=== PATIENT | female | born 1990 | race Caucasian/White ===

== ENCOUNTER → 2020-04-05 | Outpatient (CLI) | payer BC, SELFPAY ==
[2020-04-05 11:35] VITALS: BMI 32.0
[2020-04-05 18:20] LABS: Amphetamine Urine VISTA NEGATIVE (<1000 ng/mL); Barbiturate Urine VISTA NEGATIVE (< 200 ng/mL); Benzodiazepine Urine VISTA NEGATIVE (< 200 ng/mL); Cocaine Urine VISTA NEGATIVE (< 300 ng/mL); Ecstacy Urine VISTA NEGATIVE (< 500 ng/mL); Methadone Urine VISTA NEGATIVE (< 300 ng/mL); PCP Urine VISTA NEGATIVE (< 25 ng/mL); THC Urine VISTA NEGATIVE (< 50 ng/mL); Vista UDS pH Range 6
[2020-04-09 20:07] LABS: Chlamydia By Nucleic Acid AMP Negative (Negative)
[2020-04-09 21:17] LABS: Gonococcus By Nucleic Acid AMP Negative (Negative)
[2020-04-12 13:07] LABS: HPV APTIMA, High Risk Negative (Negative)
== END | disposition home or self-care (01) ==
LOC: LABSPEC 16:43
PROVIDERS: PCP Nurse Practitioner Family; Referring Provider Obstetrics & Gynecology; Visit Provider Obstetrics & Gynecology
DX: Z34.90 Encounter for supervision of normal pregnancy, unspecified, unspecified trimester (principal); Z12.4 Encounter for screening for malignant neoplasm of cervix
CPT/HCPCS: 80307; 87086; 87088; 87491; 87591; 87624; 88175; G0145

== ENCOUNTER → 2020-05-04 14:08 | Outpatient (CLI) | payer BC, SELFPAY ==
[2020-04-05 11:35] VITALS: BMI 32.0
[2020-05-04 15:43] LABS: Absolute Lymphocyte Count 1.37 X10^3/uL (0.83-4.51); Absolute Neutrophil Count 6.8 X10^3/uL (2.0-7.7); Basophil# 0.03 X10^3/uL; Basophil% 0.3 % (0-1); Eosinophil# 0.21 X10^3/uL; Eosinophils% 2.3 % (0-5); Hematocrit 37.5 % (37-47); Hemoglobin 12.5 g/dL (12.0-15.0); Lymphocyte # 1.37 X10^3/ul (4.0); Lymphocyte % 15.3 % (19-41); Mean Corp Hgb Conc 33.3 g/dL (32-36); Mean Corpuscular Hgb 31.5 pg (27.0-32.0); Mean Corpuscular Volume 94.5 fL (81-99); Mean Platelet Vol. 10.2 fl (6.2-12.0); Monocyte# 0.51 X10^3/uL; Monocyte% 5.7 % (0-10); NRBC Flagged by Analyzer 0 % (0-5); Neutrophil # 6.83 X10^3/uL (2.7-7.7); Neutrophil % 76.1 % (47-70); Platelet Count 201 K/mm3 (150-450); RBC Distribution Width CV 12.7 % (11.6-14.6); RBC Distribution Width SD 44.2 fl (35.1-43.9); Red Blood Count 3.97 M/mm3 (4.2-5.4)
[2020-05-04 15:53] LABS: Glucose Challenge Gest 1H 50g 69 mg/dL (70-140)
[2020-05-05 11:00] LABS: HIV - WCH Non-Reactive (Nonreactive); Hepatitis B Surface Antigen Non-Reactive (Nonreactive); Hepatitis C Antibody Non-Reactive (Nonreactive); Rubella IgG Reactive (Nonreactive)
== END ==
PROVIDERS: PCP Nurse Practitioner Family; Referring Provider Obstetrics & Gynecology; Visit Provider Obstetrics & Gynecology
DX: Z34.90 Encounter for supervision of normal pregnancy, unspecified, unspecified trimester (principal)
CPT/HCPCS: 36415; 82950; 85025; 86703; 86762; 86803; 86850; 86900; 86901; 87340

== ENCOUNTER → 2020-08-20 15:22 | Outpatient (CLI) | payer BC, SELFPAY ==
[2020-07-27 15:50] VITALS: BMI 32.1
[2020-08-20 15:47] LABS: Absolute Lymphocyte Count 1.18 X10^3/uL (0.83-4.51); Absolute Neutrophil Count 6.3 X10^3/uL (2.0-7.7); Basophil# 0.02 X10^3/uL; Basophil% 0.2 % (0-1); Eosinophil# 0.18 X10^3/uL; Eosinophils% 2.2 % (0-5); Hematocrit 31.5 % (37-47); Hemoglobin 10.5 g/dL (12.0-15.0); Lymphocyte # 1.18 X10^3/ul (0.83-4.51); Lymphocyte % 14.4 % (19-41); Mean Corp Hgb Conc 33.3 g/dL (32-36); Mean Corpuscular Hgb 31.3 pg (27.0-32.0); Mean Corpuscular Volume 93.8 fL (81-99); Mean Platelet Vol. 9.9 fl (6.2-12.0); Monocyte# 0.52 X10^3/uL; Monocyte% 6.3 % (0-10); NRBC Flagged by Analyzer 0 % (0-5); Neutrophil # 6.25 X10^3/uL (2.7-7.7); Neutrophil % 76.4 % (47-70); Platelet Count 206 K/mm3 (150-450); RBC Distribution Width CV 13.6 % (11.6-14.6); RBC Distribution Width SD 46.4 fl (35.1-43.9); Red Blood Count 3.36 M/mm3 (4.2-5.4); White Blood Count 8.2 K/mm3 (4.4-11.0)
[2020-08-20 16:35] LABS: Glucose Challenge Gest 1H 50g 94 mg/dL (70-140)
== END ==
PROVIDERS: Obstetrics & Gynecology; PCP Nurse Practitioner Family; Referring Provider Obstetrics & Gynecology; Visit Provider Obstetrics & Gynecology
DX: O09.291 Supervision of pregnancy with other poor reproductive or obstetric history, first trimester (principal); Z3A.12 12 weeks gestation of pregnancy; Z86.32 Personal history of gestational diabetes
CPT/HCPCS: 36415; 82950; 85025

== ENCOUNTER → 2020-09-04 | Outpatient (CLI) | payer BC, SELFPAY ==
[2020-09-04 15:41] VITALS: BMI 32.1
== END | disposition home or self-care (01) ==
LOC: LABSPEC 16:57
PROVIDERS: PCP Nurse Practitioner Family; Referring Provider Obstetrics & Gynecology; Visit Provider Obstetrics & Gynecology
DX: N89.8 Other specified noninflammatory disorders of vagina (principal)
CPT/HCPCS: 87070; 87205

== ENCOUNTER → 2020-10-16 | Outpatient (CLI) | payer BC, SELFPAY | END | disposition home or self-care (01) | LOC: LABSPEC 17:24 | PROVIDERS: PCP Nurse Practitioner Family; Referring Provider Obstetrics & Gynecology; Visit Provider Obstetrics & Gynecology | DX: Z34.93 Encounter for supervision of normal pregnancy, unspecified, third trimester (principal); Z3A.36 36 weeks gestation of pregnancy | CPT/HCPCS: 87081 ==

== ENCOUNTER 2020-11-12 05:00 | Outpatient (CLI) | payer BC, SELFPAY ==
[2020-11-12 05:06] VITALS: BMI 37.5
[2020-11-12] MEDS: Lactated Ringers 1,000 ML 999 ML IV (05:25)
[2020-11-12 05:30] VITALS: BP 120/72; PULSE 95; RESP 18; TEMP 36.1; O2SAT 98
[2020-11-12] MEDS: Acetaminophen 500 MG Tablet 1000 MG PO (05:44)
[2020-11-12 05:56] LABS: Absolute Lymphocyte Count 1.47 X10^3/uL (0.83-4.51); Absolute Neutrophil Count 6.3 X10^3/uL (2.0-7.7); Basophil# 0.02 X10^3/uL; Basophil% 0.2 % (0-1); Eosinophil# 0.17 X10^3/uL; Hematocrit 35.1 % (37-47); Hemoglobin 11.7 g/dL (12.0-15.0); Lymphocyte # 1.47 X10^3/ul (0.83-4.51); Lymphocyte % 17.3 % (19-41); Mean Corp Hgb Conc 33.3 g/dL (32-36); Mean Corpuscular Hgb 30.8 pg (27.0-32.0); Mean Corpuscular Volume 92.4 fL (81-99); Mean Platelet Vol. 9.8 fl (6.2-12.0); Monocyte# 0.49 X10^3/uL; Monocyte% 5.8 % (0-10); NRBC Flagged by Analyzer 0 % (0-5); Neutrophil # 6.27 X10^3/uL (2.7-7.7); Platelet Count 194 K/mm3 (150-450); RBC Distribution Width CV 13.8 % (11.6-14.6); RBC Distribution Width SD 46.8 fl (35.1-43.9); White Blood Count 8.5 K/mm3 (4.4-11.0)
[2020-11-12] MEDS: Lactated Ringers 1,000 ML 150 ML IV (06:33)
[2020-11-12] MEDS: Sodium Citrate/Citric Acid 30 ML UDC PO (07:01)
[2020-11-12 07:49] VITALS: TEMP 36.9
[2020-11-12] MEDS: 0.9% Saline Lock 10 ML Syringe IV (08:02)
--- NOTE | 2020-11-12 08:21 | NURSING ---
Pt had been admitted for schedued c/section. Upon entry to OR pt informed Dr. Akers she is feeling contractions. Vag exam in OR per Dr. Martinez 1-2/. reports this is a change from vag exam in office on Thursday. Pt requesting option of . brought into OR and plan of care discussed. Pt, and Dr. Martinez agree with plan to observe pt on EFM for minimum of one hour. Will schedule US for CHUCK to be done, vag exam per RN to follow.
--- NOTE | 2020-11-12 08:27 | US_ITS ---
STUDY: SECOND AND THIRD TRIMESTER OBSTETRICAL ULTRASOUND - LIMITED REASON FOR EXAM: Female, 29 years old Fluid volume index -- CHUCK prior to discharge. Please call WP when ready LMP: 02/07/2020. PRIOR ULTRASOUND: None. TECHNIQUE: Transabdominal TECHNICAL QUALITY: Adequate. FINDINGS: There is a single intrauterine fetus. The fetus is in a cephalic presentation. There is demonstrated cardiac activity with a heart rate of 150 bpm. There is a normal amniotic fluid volume. The largest amniotic fluid pocket measures 3.3 cm. The amniotic fluid index (CHUCK) is 6.1 cm. The placenta is anterior in location and is not low lying. There are Grade 3 placental changes. Age by LMP: 39 weeks, 6 days. OWEN by LMP: 11/13/2020. US/OB Limited (No Biometrics) IMPRESSION: Normal amniotic fluid. Electronically Signed: Jim Krishna MD at 10:18 EDT , Service support ,
--- NOTE | 2020-11-12 10:27 | OB.TRI.PN_ITS ---
Progress Notes Date of Service: 11/12/20 Progress Note: Patient presents for triage evaluation secondary to TOLAC. patient was originally going to have a RLTCS but is starting cotnractions and made cervical change to 1 cm so wants to try for FHT: 140 Moderate variability reactive no decelerations category I tracing [employer]: irregular Contractions Assessment and plan: false labor, no cervicla change while present, chuck 6 cm, Reactive NST, reassuring maternal and status patient discharged to home to follow-up . See problem list details for additional plan information. Laboratory Studies: Laboratory Tests 11/12/20 11/12/20 Range/Units 05:25 05:25 WBC 8.5 (4.4-11.0) K/mm3 RBC 3.80 L (4.2-5.4) M/mm3 Hgb 11.7 L (12.0-15.0) g/dL Hct 35.1 L (37-47) % MCV 92.4 (81-99) fL MCH 30.8 (27.0-32.0) pg MCHC 33.3 (32-36) g/dL RDW Std Deviation 46.8 H (35.1-43.9) fl RDW Coeff of Elise 13.8 (11.6-14.6) % Plt Count 194 (150-450) K/mm3 MPV 9.8 (6.2-12.0) fl Immature Gran % (Auto) 0.700 (0.0-0.9) % Neut % (Auto) 74.0 H (47-70) % Lymph % (Auto) 17.3 L (19-41) % Norton % (Auto) 5.8 (0-10) % Eos % (Auto) 2.0 (0-5) % Baso % (Auto) 0.2 (0-1) % Absolute Neuts (auto) 6.3 (2.0-7.7) X10^3/uL Absolute Lymphs (auto) 1.47 (0.83-4.51) X10^3/uL Nucleated RBC % 0 (0-5) % Blood Type O POSITIVE Antibody Screen NEGATIVE Charges/Coding Procedures Urinary/Genital 52xxx-59xxx: 88832-87 non-stress test Interp Assessment & Plan (1) False labor: (2) CHUCK (amniotic fluid index) borderline low: COMMENT: kick counts reviewed, repeat chuck and fu in office
== END 2020-11-12 10:25 | disposition home or self-care (01) ==
LOC: WP 10:15 → WPOUT 15:02
PROVIDERS: Obstetrics & Gynecology; PCP Nurse Practitioner Family; Referring Provider Obstetrics & Gynecology; Visit Provider Obstetrics & Gynecology
PROC: (CPT 59514; principal; 2020-11-12 07:15)
DX: O47.9 False labor, unspecified (principal); O34.219 Maternal care for unspecified type scar from previous cesarean delivery; Z3A.00 Weeks of gestation of pregnancy not specified
CPT/HCPCS: 96360; 36415; 59025; 59050; 76815; 85025; 86850; 86900; 86901; 99218; J7120; A4216; G0378

== ENCOUNTER 2020-11-14 01:40 | Outpatient (CLI) | payer BC, SELFPAY ==
[2020-11-14] VITALS (12 sets, daily range): BP systolic 137; BP diastolic 78; PULSE 116–133; TEMP 36.6; O2SAT 86–99; BMI 37.4
--- NOTE | 2020-11-14 05:40 | OB.TRI.PN ---
Progress Notes Date of Service: 11/14/20 Progress Note: Patient presents for triage evaluation secondary to contractions and back pain. Cervix 2cm on arrival. Unchanged on 2h recheck. Discharged in stable condition. FHT: Moderate variability reactive no decelerations category I tracing [place]: q3-8 min Contractions Assessment and plan: Reactive NST, reassuring maternal and status patient discharged to home to follow-up at next scheduled visit. See problem list details for additional plan information. Charges/Coding Procedures Urinary/Genital 52xxx-59xxx: 60342-93 non-stress test Interp
== END 2020-11-14 05:25 | disposition home or self-care (01) ==
LOC: WPOUT 01:45 → WP 01:45
PROVIDERS: PCP Nurse Practitioner Family; Visit Provider Obstetrics & Gynecology
DX: O26.899 Other specified pregnancy related conditions, unspecified trimester (principal); M54.9 Dorsalgia, unspecified; Z3A.00 Weeks of gestation of pregnancy not specified
CPT/HCPCS: 59025; 59050; 99218; G0378

== ENCOUNTER → 2020-11-15 | Outpatient (CLI) | payer BC, SELFPAY ==
[2020-11-15 14:47] LABS: ROM Internal Control Test YES-OK TO RESULT pt. (Internal QC); ROM Patient Test Negative (Negative)
== END | disposition home or self-care (01) ==
LOC: LABSPEC 11-21 09:11
PROVIDERS: Obstetrics & Gynecology; PCP Nurse Practitioner Family; Visit Provider Obstetrics & Gynecology
DX: O26.899 Other specified pregnancy related conditions, unspecified trimester (principal); N89.8 Other specified noninflammatory disorders of vagina
CPT/HCPCS: 84112

== ENCOUNTER 2020-11-19 05:00 | Inpatient (IN) | payer BC, SELFPAY ==
--- NOTE | 2020-11-18 12:11 | PCM.HP.BLA ---
History and Physical Date of Admission: 11/19/20 Vital Signs 11/08/20 16:09 Height 5 ft 2 in Weight: 206 lb 4 oz BMI 37.7 BP 120/80 Intake Visit Reasons: 39 WK OB Airveyor Operator Required: No Is patient in pain?: No Allergies No Known Allergies Allergy (Verified 11/08/20 16:10) Medications cholecalciferol (vitamin D3) 25 mcg (1,000 unit) capsule 25 mcg PO DAILY 04/04/20 [History Confirmed 11/08/20] multivitamin no.47-iron fum 27 mg-folate no.1 1 mg-dha 300 mg capsule cap PO 04/04/20 [History Confirmed 11/08/20] Last Menstral Period: 02/07/20 Zika: Zika virus screening: Negative : No PFSH PFSH Medical History Anxiety Bartonella infection Surgical History H/O section H/O wisdom tooth extraction Family History Father Hypertension Social History adopted: No household members: family housing: house number of children: 2 Smoking Status: Former smoker second hand exposure: No alcohol intake: current alcohol intake frequency: holidays/special occasions only details: not while substance use type: does not use seatbelt use: always do you feel safe at home: Yes additional social history: - Harjeet Pregancy History 3 Elective abortions Hx Para 2 Spontaneous abortions Hx # Term Pregnancies Ectopic pregnancies Hx # Pregnancies Multiple births # of living children 2 Past Pregnancies Del. Date Name GA/Weeks Outcome Route Bth Weight Infant Gen Labor Lgth Anesthesia Del Locatn Provider FOB 12/03/16 Becca 40 live - full term 7lbs 11oz Female 1 hour epidural [facility] Dr. Winnie Cosby 04/16/19 Adelaida 39 live - full term 7lbs Female 0 spinal [facility] Dr. Winnie Cosby Delivery Date: 12/03/16 GDM; STAT C/S due to heart rate decel Miriam Tirado Delivery Date: 04/16/19 RLTCS - spinal did not work Sofi Worley HPI 39 WK OB Details: LOUIE GERMAIN is a 29 year old who presents for routine OB visit. OB Visit OWEN Calculator Estimated Delivery Date Method Current WG Current Estimate 11/13/20 LMP (Certain) 39w 2d Other Estimates 11/14/20 Ultrasound #1 39w 1d Expected Delivery Route/Plan plan tolac plan RLTCS with SM at 40 if no labor patient counseled regarding risks/benefits of trial of labor versus repeat . ACOG/uptodate education given to patient. 65 % likelihood of success per calculator TOLAC consent form signed: yes 09/04 Labor Preferences- labor support person: [] labor intervention preferences: [] pain management options preferred: [] cut cord/dad catch: [] : [] PP control planned: [] discussed possible routes of delivery and associated risks: [] special requests: [] Specific Issue/Plans flu vaccine: tdap vaccine: given rhogam: na LARC form signed: declined movement and labor precautions reviewed. Problem list reviewed and updated with the most current plan of care details and appropriate orders placed. Relevant counseling for the gestational age provided. Continue routine care and follow up unless otherwise noted in visit notes/problem list details Initial Weight: 175 lb Date EGA Weight BP Urine Prot Glucose FHR FuHt Pres Dilation Effaced St Visit Note 04/05/20 8w 2d 175 lb (+0 oz) 102/80 155 GP - CRL consistent with LMP. GP - CRL 15mm consistent with LMP. 05/04/20 12w 3d 177 lb 4 oz (+2 lb 4 oz) 116/80 Negative Negative 170 GP - no bleeding. One episode of cramping. Did sneak peak - having girl #3! Anatomy scan ordered. GP - no bleeding. One episode of cramping. Did sneak peak - having girl #3! Anatomy scan ordered. Had NOB labs and GCT done today. 06/01/20 16w 3d 176 lb (+16 oz) 120/72 Negative Negative 150 16 SM- no vb lof noregular ctx decliens afp. discussed TOLAC, good candidate. 06/20/20 19w 1d 180 lb 4 oz (+5 lb 4 oz) 118/66 Negative Negative 164 MH-No VB, LOF. ?FM. Will have miriam procedure at [facility] on 07/11 for basal cell Ca on face. 07/27/20 24w 3d 186 lb (+11 lb) 102/74 Negative Negative 145 24 GP - no LOF, VB, DFM, ctx. Had miriam procedure this week 08/20/20 27w 6d 194 lb (+19 lb) 132/72 Negative Negative 140 28 SM- no vb lof good fm no regular ctx declined tdap 09/04/20 30w 0d 192 lb (+17 lb) 104/70 Negative Negative 140 30 Sm- no vb lof good fm no regular ctx co increased discharge and odor. sign tolac consent, larc 09/19/20 32w 1d 195 lb 8 oz (+20 lb 8 oz) 110/60 Negative Negative 145 32 GP - no LOF, VB, DFM, ctx. Doing well without complaints. 10/05/20 34w 3d 198 lb (+23 lb) 118/62 Negative Negative 135 34 Cephalic GP - no LOF, VB, DFM, ctx. TOLAC consent signed. 10/16/20 36w 0d 203 lb (+28 lb) 104/72 Negative Negative 135 36 Cephalic 0 Sm- no vb lof good fm no regular ctx 10/22/20 36w 6d 178 lb (+3 lb) 122/84 Negative Negative 135 37 Unstable 0.5 SM- no vb lof good fm no regular ctx 11/01/20 38w 2d 204 lb 4 oz (+29 lb 4 oz) 120/80 Negative Negative 140 38 Cephalic 0.5 40 -3 GP - no LOF, VB, ctx. Reports movement has slowed down over the last 3 days - NST done in office 11/08/20 39w 2d 206 lb 4 oz (+31 lb 4 oz) 120/80 Negative Negative 140 39 0 SM- no vb lof good fm no regular ctx ACOG First Trimester First Trimester: Desire for , Alcohol, Tobacco Cessation, Illicit/Recreational Drug/Substance Use, Intimate Partner Violence, Barriers to care, Unstable Housing, Communication Barriers, Environmental/Work Hazards, Anticipated Course of Care, Toxoplasmosis Precations, Use of Any medications, Sexual activity, Exercise, Dental Care, Sauna/Hot tub use, Seat Belt use, Childbirth classes/Hospital facilities, , Travel, Indications for Ultrasound and Screening for Aneuploidy Second Trimester Second Trimester: Signs and Symptoms of Labor, Selecting a care provider, Reproductive Life Planning & Contreception, Care Planning, Tobacco Cessation, Depression/Anxiety and Intimate Partner Violence Third Trimester Third Trimester: Pain Management Plans, Labor support person(s), Immediate Larc, Movement Monitoring and Feeding Yes ; Discussed Trial of Labor after Counseling and Discussed Circumcision preference Diagnostics Diagnostics Diagnostics: Glucose 1 Hr 50 gm 94 mg/dL (70-140) Hgb 10.5 g/dL (12.0-15.0) L Hct 31.5 % (37-47) L Details: HIV: Urine Culture: Sequential Screen: NIPT Screen: ROS Const Reports system reviewed and no additional complaints, except as documented Card Reports system reviewed and no additional complaints, except as documented Resp Reports system reviewed and no additional complaints, except as documented GI Reports system reviewed and no additional complaints, except as documented and Reports nausea Reports system reviewed and no additional complaints, except as documented Musc Reports system reviewed and no additional complaints, except as documented Exam Const General: cooperative, healthy appearing, comfortable and anxious HENDE Head: normal to inspection Nose: external nose normal Face and sinus: normal facial exam Neck Neck: normal visual inspection, full ROM and no lymphadenopathy Thyroid: thyroid normal Chest Chest palpation & inspection: normal inspection of the chest Resp Effort & Inspection: normal respiratory effort GI Inspection: normal to inspection Palpation: soft and other (gravid uterus) Other: infant vertex and appropriate size for gestational age Other: Cervical Exam: Extrem General: pedal edema Results POC Urinalysis 2 Dip (Clinic) Office Urine Glucose Negative Last Edit by Neeru Hector on 11/08/20 16:14 Office Urine Protein Negative Last Edit by Neeru Hector on 11/08/20 16:14 Coding Level of Care Code OB Routine Diagnoses Anemia affecting in third trimester O99.013 Basal cell carcinoma of face C44.310 Anxiety F41.9 Short interval between pregnancies affecting , antepartum O09.899 Supervision of other normal Z34.80 Z3A.39 Weeks of gestation: 39 weeks H/O gestational diabetes in prior , currently O09.299; Z86.32 H/O section Z98.891 Assessment and Plan Assessment and Plan (1) Anemia affecting in third trimester: Status: Acute Comment: iron, repeat cbc 1 month (2) Basal cell carcinoma of face: Status: Acute Comment: procedure 07/11/20 Dr Mendez/[facility] right canthus, right buccal cheek (3) Anxiety: Status: Acute (4) Short interval between pregnancies affecting , antepartum: Status: Acute Comment: last 03/2019. (5) Supervision of other normal : Status: Acute Comment: PRR OWEN: 11/13/20 PC: Adelaida Hudson Spouse: Harjeet (6) : Status: Acute Qualifiers: Weeks of gestation: 39 weeks Qualified Code(s): Z3A.39 - 39 weeks gestation of Comment: declines genetic, afp, and carrier; NL anatomy; GBS neg (7) H/O gestational diabetes in prior , currently : Status: Acute Comment: in first ; NL glucose in second ; nl 1 tm GCT (8) H/O section: Status: Acute Comment: 04/16/19- scheduled, 12/03/2016- STAT C/S decels; plan TOLAC by 40 weeks. RLTCS scheduled 11/12 @ 12 Plan Details Other Orders: Orders: POC Urinalysis 2 Dip (Clinic) Today UPDATE- I have seen the patient and performed any clinically relevant updates to the history and physical exam. Georgette Martinez MD
[2020-11-19] VITALS (18 sets, daily range): BP systolic 95–129; BP diastolic 48–79; PULSE 72–100; RESP 16–20; TEMP 36.1–37.2; O2SAT 94–100; BMI 37.6
[2020-11-19] MEDS: Lactated Ringers 1,000 ML 999 ML IV (05:25)
[2020-11-19] MEDS: Acetaminophen 500 MG Tablet 1000 MG PO ×3 (05:59→18:12)
[2020-11-19 06:22] LABS: Absolute Lymphocyte Count 1.45 X10^3/uL (0.83-4.51); Basophil# 0.03 X10^3/uL; Basophil% 0.4 % (0-1); Eosinophil# 0.14 X10^3/uL; Eosinophils% 1.7 % (0-5); Hematocrit 38.6 % (37-47); Hemoglobin 12.7 g/dL (12.0-15.0); Lymphocyte # 1.45 X10^3/ul (0.83-4.51); Lymphocyte % 17.4 % (19-41); Mean Corp Hgb Conc 32.9 g/dL (32-36); Mean Corpuscular Hgb 30.5 pg (27.0-32.0); Mean Corpuscular Volume 92.8 fL (81-99); Mean Platelet Vol. 9.9 fl (6.2-12.0); Monocyte% 7.2 % (0-10); NRBC Flagged by Analyzer 0 % (0-5); Neutrophil # 5.99 X10^3/uL (2.7-7.7); Neutrophil % 72.1 % (47-70); Platelet Count 221 K/mm3 (150-450); RBC Distribution Width CV 13.6 % (11.6-14.6); RBC Distribution Width SD 46.5 fl (35.1-43.9); Red Blood Count 4.16 M/mm3 (4.2-5.4); White Blood Count 8.3 K/mm3 (4.4-11.0)
[2020-11-19] MEDS: Lactated Ringers 1,000 ML 150 ML IV (06:25)
[2020-11-19] MEDS: Sodium Citrate/Citric Acid 30 ML UDC PO (06:59)
[2020-11-19] MEDS: Cefazolin 2 GM in 0.9% Normal Saline 100 ML IV (07:27)
--- NOTE | 2020-11-19 07:40 | EX.PCM.OBRPT ---
Assessment & Plan (1) H/O gestational diabetes in prior , currently : COMMENT: in first ; NL glucose in second ; nl 1 tm GCT (2) : QUALIFIERS: Weeks of gestation: 40 weeks Qualified Code(s): Z3A.40 - 40 weeks gestation of COMMENT: declines genetic, afp, and carrier; NL anatomy; GBS neg (3) Supervision of other normal : COMMENT: PRR OWEN: 11/13/20 PC: Adelaida Hudson Spouse: Harjeet (4) Short interval between pregnancies affecting , antepartum: COMMENT: last 03/2019. (5) Basal cell carcinoma of face: COMMENT: procedure 07/11/20 Dr Mendez/[facility] right canthus, right buccal cheek (6) Anemia affecting in third trimester: COMMENT: iron, repeat cbc 1 month (7) H/O section: COMMENT: 04/16/19- scheduled, 12/03/2016- STAT C/S decels; plan TOLAC by 41 weeks. RLTCS scheduled 11/19 @ 7:30 (8) Anxiety: (9) CHUCK (amniotic fluid index) borderline low: COMMENT: kick counts reviewed, repeat chuck and fu in office (10) delivery delivered: COMMENT: 41 SM RLTCS minimal scar tissue, 8lb girl Rebekah Maternal Data Information OWEN Calculator Estimated Delivery Date Method Current WG Current Estimate 11/13/20 LMP (Certain) 40w 6d Other Estimates 11/14/20 Ultrasound #1 40w 5d Final OWEN Source: LMP Details Operative Information Date of Procedure: 11/19/20 Pre-Operative Diagnosis: Previous Post-Operative Diagnosis: same Indications for : Repeat Elective Classification: Scheduled director of casework department #1: Nancy Rivera Type of Anesthesia: Spinal Special Medications: none Antibiotic Given: Ancef 2 grams IV x1 Drain: Ojeda to straight drain Estimated Blood Loss: 600 Fluids Replaced: crystalloid Findings Description of Procedure: Spinal anesthesia was placed without difficulty. Ojeda catheter was placed. The patient was placed in the dorsal supine position with leftward tilt. Patient was prepped and draped in the normal sterile fashion. Pfannenstiel skin incision was made with the scalpel and carried through to the underlying layer of fascia with the scalpel. Fascia was nicked in the midline and the incision extended laterally. The rectus bellies were dissected off superiorly and inferiorly with out complication both sharply and bluntly. The peritoneum was entered digitally. The incision was stretched and a low transverse uterine incision was made with the scalpel. The infant's head was delivered atraumatically followed by the anterior and posterior shoulders without complication the rest of the infant delivered. The cord was clamped and cut and the infant was handed off to awaiting nurse. The placenta was delivered spontaneously immediately following and was noted to be intact and have a three-vessel cord. The uterus was exteriorized cleared of all clots and debris, and the incision was closed in a double layer closure using #1 Monocryl. The ovaries and fallopian tubes were noted to be within normal limits. The uterus was returned to the maternal abdomen and gutters were cleared of all clots and debris. The peritoneum was closed with 3-0 Monocryl in a running fashion. Gloves were changed prior to fascial closure. Fascia was closed with 0 PDS in a running fashion. Subcutaneous tissue was copiously irrigated and the skin was closed with 3-0 Monocryl in a subcuticular fashion. Mepilex dressing was applied without complication. Patient was taken to recovery in stable condition. It was discussed with the patient that based on the clinical information obtained during this encounter, combined with her history, at this time I would recommend cesareans for future deliveries if further pregnancies are desired. Amniotic Membrane Rupture Type: Artificial Amniotic Fluid Description: Clear Placenta Disposition: [facility] Cord Vessel Description: 3 Vessels Cord Entanglement: None Delayed Cord Clamping: Yes Complications Risks of Surgery Discussed w/Patient: Bleeding, Infection, Need for Future C-Sections and Injury to surrounding structure(s) including bowel and bladder Vaginal Delivery Complication Complications: None Admit VTE Documentation VTE Present on Admission: No VTE Mechan Device Prophylaxis: SCD's Procedures Urinary/Genital 52xxx-59xxx: 90052 Delivery [facility]
--- NOTE | 2020-11-19 07:41 | PCM.DC ---
Discharge Instructions Diet Discharge Diet: No restrictions Activity Discharge Activity: May Not Drive (for 2 weeks or while taking narcotic pain medications.), May Shower and May Take a Tub Bath (in 7 days) May shower in (days): 0 May resume sexual activity in: 4-6 weeks Weight Bearing Status: Full weight bearing Lifting Restrictions: 20 pounds Dressing / Incision Call your doctor if your incision/area has: Continuous Slow Oozing, Sudden Increased Bleeding, Increased Pain/ Swelling, Increased Redness and Foul Smelling Discharge Call your doctor if you observe: Fever of 101 or Higher and Using more than 1 pad per hour (for 2 hours) Suture Line Care: Avoid Pulling/Pushing and Avoid Pinching/Bending Cleanse incision/area with: Soap & Water and Keep Dressing Clean & Dry Follow Up Care Please Follow Up With: Georgette Martinez MD When: Call [phone] to make an appointment for an incision check in 1-2 weeks. Test Results: Test results from this visit will be discussed in further detail at your follow-up appointment, if applicable. Discharge Plan Admission Admit Date/Time: 11/19/20 05:00 Primary Reason for Your Visit: delivery Attending Provider: Georgette Martinez Primary Care Provider: Lucina Dang NP Discharge Orders/Prescriptions Prescriptions: New naproxen 250 MG tablet 250 - 500 mg PO Q8H PRN PRN (Reason: MILD PAIN) Qty: 30 RF: 1 oxycodone-acetaminophen [Endocet] 5-325 mg tablet 1 tab PO Q4H PRN (Reason: pain) 7 Days Qty: 20 RF: 0 Continued PNV-DHA 27 mg iron-1 mg -300 mg capsule 1 cap PO DAILY RF: 0 cholecalciferol (vitamin D3) 25 mcg (1,000 unit) capsule 25 mcg PO DAILY RF: 0 Referrals / Follow Up: Lucina Dang NP, CHEMICAL PROCESSING SUPERVISOR-C [Primary Care Provider] - Disposition Disposition (needs filled in before D/C Order can be placed): Home, Self Care
[2020-11-19] MEDS: Oxytocin 30 units/NS 500 ml 30 UNITS/500 ML IV.SOLN 167 UNITS IV (08:45)
[2020-11-19] MEDS: DiphenhydrAMINE 25 MG Capsule PO (10:23)
[2020-11-19] MEDS: Senna/Docusate Sodium 1 Tablet PO (10:23)
[2020-11-19] MEDS: Cholecalciferol (VIT D3) 25 MCG TABLET (1,000 UNITS) PO (10:23)
--- NOTE | 2020-11-19 11:16 | NURSING ---
Report given to Amie Henderson RN, who will assume care of this patient at this time.
[2020-11-19] MEDS: Prenatal Vits Tablet 1 TABLET PO (12:02)
[2020-11-19] MEDS: Lactated Ringers 1,000 ML 100 ML IV (12:49)
[2020-11-19] MEDS: Ketorolac 30 MG/ML Syringe IV ×2 (14:04→20:24)
[2020-11-19] MEDS: 0.9% Saline Lock 10 ML Syringe IV ×2 (14:05→20:24)
[2020-11-19] MEDS: Enoxaparin 40 MG/0.4 ML Syringe SC (20:24)
[2020-11-20 00:06] VITALS: BP 120/68; PULSE 80; RESP 18; TEMP 36.6
[2020-11-20] MEDS: Acetaminophen 500 MG Tablet 1000 MG PO ×4 (00:09→17:58)
[2020-11-20] MEDS: Ketorolac 30 MG/ML Syringe IV (04:20)
[2020-11-20 04:30] VITALS: BP 117/67; PULSE 74; RESP 16; TEMP 36.6
[2020-11-20 06:21] LABS: Hematocrit 33.9 % (37-47); Hemoglobin 11.1 g/dL (12.0-15.0); Mean Corp Hgb Conc 32.7 g/dL (32-36); Mean Corpuscular Hgb 30.8 pg (27.0-32.0); Mean Corpuscular Volume 94.2 fL (81-99); Mean Platelet Vol. 9.5 fl (6.2-12.0); Platelet Count 172 K/mm3 (150-450); RBC Distribution Width CV 14.2 % (11.6-14.6); RBC Distribution Width SD 48.9 fl (35.1-43.9); White Blood Count 7.6 K/mm3 (4.4-11.0)
--- NOTE | 2020-11-20 08:18 | PCM.PN.OB ---
Subjective Subjective Patient doing well without complaints. Tolerating PO. Ambulating and voiding without difficulty. feeding well. Denies chest pain, shortness of breath, calf pain/swelling, fevers, chills, lightheadedness. Objective Data Objective Data Vital Signs: Vital Signs Temp Pulse Resp BP Pulse Ox 97.8 F 74 16 117/67 96 11/20/20 04:30 11/20/20 04:30 11/20/20 04:30 11/20/20 04:30 11/19/20 22:42 Oxygen Delivery Method Room Air Weight: 206 lb Body Mass Index (BMI) 37.6 Intake & Output: Intake and Output for Last 24 Hours 11/18/20 11/19/20 11/20/20 23:59 23:59 23:59 Intake Total 3368.33 / 3368.33 Output Total 1150 / 1150 400 / 400 Balance 2218.33 / 2218.33 -400 / -400 Lab / Micro Data Result Diagrams: 11/20/20 06:10 Labs: Laboratory Results - last 24 hr 11/20/20 06:10: WBC 7.6, RBC 3.60 L, Hgb 11.1 L, Hct 33.9 L, MCV 94.2, MCH 30.8, MCHC 32.7, RDW Std Deviation 48.9 H, RDW Coeff of Elise 14.2, Plt Count 172, MPV 9.5 Micro: Microbiology 11/19/20 05:40 Nasal Secretion SARS-CoV-2 Antigen (Rapid) - Final ROS Constitutional Constitutional: Reports systems reviewed and no addt'l complaints, except as documented Cardiovascular Cardiovascular: Reports systems reviewed and no addt'l complaints, except as documented Respiratory/Chest Respiratory/Chest: Reports systems reviewed and no addt'l complaints, except as documented Gastrointestinal Gastrointestinal: Reports systems reviewed and no addt'l complaints, except as documented Physical Exam Const alert, oriented x3 and no apparent distress HEENT Head and Scalp: atraumatic Resp normal respiratory effort GI soft to palpation and non-tender Inspection: incision intact, healing well and drainage (none) Bimanual Exam - Vag & Uterus: uterus non-tender Uterus Palpation: uterus fundus firm (below Umbilicus) Assessment & Plan (1) delivery delivered: COMMENT: 41 SM RLTCS minimal scar tissue, 8lb girl Rebekah PLAN: s/p LTCS PPD # 1 1. routine post care 2. breast feeding- support given 3. rh positive 4. rubella immune
[2020-11-20 08:27] VITALS: BP 119/66; PULSE 76; RESP 16; TEMP 36.6
[2020-11-20] MEDS: Prenatal Vits Tablet 1 TABLET PO (12:04)
[2020-11-20] MEDS: Cholecalciferol (VIT D3) 25 MCG TABLET (1,000 UNITS) PO (12:04)
[2020-11-20] MEDS: Naproxen 500 MG Tablet PO (12:04)
[2020-11-20] MEDS: Senna/Docusate Sodium 1 Tablet PO (12:05)
[2020-11-20 14:39] VITALS: BP 118/65; PULSE 86; RESP 16; TEMP 36.9
== END 2020-11-20 18:35 | disposition home or self-care (01) | DRG 788 ==
PROVIDERS: Admitting Provider Obstetrics & Gynecology; PCP Nurse Practitioner Family; Referring Provider Obstetrics & Gynecology; Visit Provider Obstetrics & Gynecology
PROC: 10D00Z1 Extraction of Products of Conception, Low, Open Approach (ICD-10-PCS; CPT 59514; principal; 2020-11-19 07:15)
DX: O34.211 Maternal care for low transverse scar from previous cesarean delivery (principal); Z20.822 Contact with and (suspected) exposure to COVID-19; Z86.32 Personal history of gestational diabetes; Z85.828 Personal history of other malignant neoplasm of skin; Z87.891 Personal history of nicotine dependence; Z3A.40 40 weeks gestation of pregnancy; Z37.0 Single live birth
CPT/HCPCS: 85025; 85027; 86850; 86900; 86901; 87426; 99218; J7120; A4216; G0378; J2405

== ENCOUNTER → 2020-12-05 | Outpatient (CLI) | payer BC, SELFPAY | END | disposition home or self-care (01) | LOC: LABSPEC 12:27 | PROVIDERS: PCP Nurse Practitioner Family; Referring Provider Nurse Practitioner Women's Health; Visit Provider Nurse Practitioner Women's Health | DX: R30.9 Painful micturition, unspecified (principal) | CPT/HCPCS: 87086 ==

== ENCOUNTER → 2022-01-24 | Outpatient (CLI) | payer BC, SELFPAY ==
--- NOTE | 2022-01-24 15:42 | US_ITS ---
ACR Level 3 findings have been noted. An addendum which confirms receipt of the report will follow. INDICATION: Pelvic pain, IUD in place for one year EXAMINATION: Ultrasound US Pelvis Non OB Complete With Transvaginal Imaging TECHNIQUE: Transabdominal and transvaginal pelvic ultrasound was performed. Grayscale, spectral waveform, and color flow Doppler evaluation of the adnexa. COMPARISON: None. FINDINGS: UTERUS: Anteverted. The uterus measures 8.8 x 4.9 x 3.8 cm. There is no uterine mass. The endometrial stripe measures 3 mm in AP diameter which is within normal limits. IUD identified low within the endometrial canal with arms possibly embedded in the anterior myometrium. RIGHT OVARY: 2.9 x 2.5 x 2.2 cm. Non-enlarged, normal echogenicity. There is normal arterial inflow and venous outflow present in the right ovary. LEFT OVARY: 2.6 x 2.1 x 1.5 cm. Non-enlarged, normal echogenicity. There is normal arterial inflow and venous outflow present in the left ovary. FREE FLUID: None. US/Pelvic (Non ) IMPRESSION: Probable hydration/malposition of the IUD. Recommend gynecological consultation. Electronically Signed: Lauro Berry MD at 18:38 EST ,
== END | disposition home or self-care (01) ==
LOC: US 15:42
PROVIDERS: Referring Provider Obstetrics & Gynecology; Visit Provider Obstetrics & Gynecology
DX: N94.10 Unspecified dyspareunia (principal)
CPT/HCPCS: 76830; 76856; 93976